=== PATIENT | female | born 1975 | race American Indian/Alaskan Native ===

== ENCOUNTER 2019-04-27 23:54 | Emergency (ER) | payer MEDICAID ==
[~2019-04-27] VITALS: Ht 152.4 cm; Wt 38.0 kg
[~2019-04-27 23:54] MED LIST: ALBU8.5H8 IH; HYDR-4383 PO; IBUP-1985 PO
--- NOTE | 2019-04-28 01:20 | NUR ---
Patient resting comfortably
[2019-04-28 01:52] VITALS: BP 112/65
== END 2019-04-28 01:54 | disposition home or self-care (01) ==
LOC: ER 23:54
DX: S60.562A Insect bite (nonvenomous) of left hand, initial encounter (principal); J45.909 Unspecified asthma, uncomplicated; F10.99 Alcohol use, unspecified with unspecified alcohol-induced disorder; R22.0 Localized swelling, mass and lump, head; Z59.0 Homelessness; Z86.14 Personal history of Methicillin resistant Staphylococcus aureus infection; Z88.0 Allergy status to penicillin; Z79.899 Other long term (current) drug therapy; W57.XXXA Bitten or stung by nonvenomous insect and other nonvenomous arthropods, initial encounter; Y93.89 Activity, other specified; Y92.89 Other specified places as the place of occurrence of the external cause; Y99.8 Other external cause status; Y90.9 Presence of alcohol in blood, level not specified
CPT/HCPCS: 99283

== ENCOUNTER 2019-05-24 17:40 | Emergency (ER) | payer MEDICAID ==
[~2019-05-24] VITALS: Ht 152.4 cm; Wt 45.0 kg
[2019-05-24 17:44] VITALS: BP 100/72
[2019-05-24] MEDS ORDERED: CEPH250T PO (19:00)
== END 2019-05-24 19:13 | disposition home or self-care (01) ==
LOC: ER 17:40
DX: S61.210A Laceration without foreign body of right index finger without damage to nail, initial encounter (principal); L03.113 Cellulitis of right upper limb; J45.909 Unspecified asthma, uncomplicated; F10.99 Alcohol use, unspecified with unspecified alcohol-induced disorder; Z86.14 Personal history of Methicillin resistant Staphylococcus aureus infection; Z88.0 Allergy status to penicillin; Z79.899 Other long term (current) drug therapy; W22.8XXA Striking against or struck by other objects, initial encounter; Y93.89 Activity, other specified; Y92.89 Other specified places as the place of occurrence of the external cause; Y99.8 Other external cause status; Y90.9 Presence of alcohol in blood, level not specified
CPT/HCPCS: 99283

== ENCOUNTER 2019-07-19 13:25 | Emergency (ER) | payer MEDICAID ==
[~2019-07-19] VITALS: Ht 152.4 cm; Wt 37.5 kg
[2019-07-19] MEDS ORDERED: cephalexin 500mg capsule PO ONE (14:05)
[2019-07-19] MEDS ORDERED: acetaminophen 325mg tablet PO ONE (14:05)
[2019-07-19] MEDS ORDERED: IBUP-1986 PO (14:08)
[2019-07-19] MEDS ORDERED: CEPH-572 PO (14:08)
--- NOTE | 2019-07-19 14:45 | NUR ---
spoke to provider re: pt temp still 101.5, would like to do sepsis protocol, she says pt has scalet fever, no labs and not advanced enough for system failure, she will order fluids and torodol
[2019-07-19] MEDS ORDERED: LIDOcaine Viscous 15ml cup MM ONE (15:00)
[2019-07-19] MEDS ORDERED: normal saline 1000ML IV soln IVB ONE (15:00)
[2019-07-19] MEDS ORDERED: ketorolac trometh. 30mg/ml inj. IV ONE (15:00)
[2019-07-19 16:25] VITALS: BP 116/69
== END 2019-07-19 16:28 | disposition home or self-care (01) ==
LOC: ER 13:26
DX: J02.0 Streptococcal pharyngitis (principal); B95.5 Unspecified streptococcus as the cause of diseases classified elsewhere; A38.9 Scarlet fever, uncomplicated; J45.909 Unspecified asthma, uncomplicated; F10.99 Alcohol use, unspecified with unspecified alcohol-induced disorder; Z86.14 Personal history of Methicillin resistant Staphylococcus aureus infection; Z88.0 Allergy status to penicillin; Z79.899 Other long term (current) drug therapy; Y90.9 Presence of alcohol in blood, level not specified
CPT/HCPCS: 96374; 99284; J1885; J7030

== ENCOUNTER 2020-04-22 11:06 | Emergency (ER) | payer MEDICAID ==
[~2020-04-22] VITALS: Ht 152.4 cm; Wt 40.5 kg
[~2020-04-22 11:06] MED LIST changes: +IBUP-1986 PO
[2020-04-22 11:10] VITALS: BP 132/84
[2020-04-22] MEDS ORDERED: CefTRIAXone 250MG IM Kit w/LIDOcaine IM ONE (15:05)
[2020-04-22] MEDS ORDERED: azithromycin 250mg tablet PO ONE (15:05)
[2020-04-22] MEDS ORDERED: ibuprofen tablet 400 MG TABLET PO ONE (15:05)
[2020-04-22] MEDS ORDERED: ACYC-1 PO (15:09)
[2020-04-22 15:21] LABS: URINE HCG NEGATIVE (NEG)
== END 2020-04-22 15:17 | disposition home or self-care (01) ==
LOC: ER 11:07
DX: B00.89 Other herpesviral infection (principal); R10.2 Pelvic and perineal pain; J45.909 Unspecified asthma, uncomplicated; Z86.14 Personal history of Methicillin resistant Staphylococcus aureus infection; Z72.89 Other problems related to lifestyle; Z88.0 Allergy status to penicillin; Z88.5 Allergy status to narcotic agent; Z79.2 Long term (current) use of antibiotics; Z79.899 Other long term (current) drug therapy
CPT/HCPCS: 36415; 81025; 87491; 87591; 96372; 99283; J0696

== ENCOUNTER 2020-05-12 15:31 | Emergency (ER) | payer MEDICAID ==
[~2020-05-12] VITALS: Ht 167.6 cm; Wt 54.5 kg
[2020-05-12] MEDS ORDERED: NO HOME MEDS (15:47)
[2020-05-12] MEDS ORDERED: ketorolac tromethamine 15mg/ml inj. IM ONE (16:35)
--- NOTE | 2020-05-12 16:40 | NUR ---
pt out to ct via [facility] with activity director
--- NOTE | 2020-05-12 16:52 | NUR ---
BACK FROM CT
--- NOTE | 2020-05-12 16:52 | NUR ---
returns from ct
[2020-05-12] MEDS ORDERED: DICL100G30 TOP (17:13)
[2020-05-12 17:41] VITALS: BP 123/96
== END 2020-05-12 17:44 | disposition home or self-care (01) ==
LOC: ER 15:31
DX: M54.5 Low back pain (principal); J45.909 Unspecified asthma, uncomplicated; Z86.14 Personal history of Methicillin resistant Staphylococcus aureus infection; Z72.89 Other problems related to lifestyle; Z88.0 Allergy status to penicillin; Z88.5 Allergy status to narcotic agent; Z79.899 Other long term (current) drug therapy; V87.7XXA Person injured in collision between other specified motor vehicles (traffic), initial encounter; Y93.89 Activity, other specified; Y92.89 Other specified places as the place of occurrence of the external cause; Y99.8 Other external cause status
CPT/HCPCS: 70450; 72131; 96372; 99285; J1885

== ENCOUNTER 2020-05-18 19:08 | Emergency (ER) | payer MEDICAID ==
[~2020-05-18] VITALS: Ht 152.4 cm; Wt 40.9 kg
[~2020-05-18 19:08] MED LIST changes: -ALBU8.5H8 IH; +DICL100G30 TOP; -HYDR-4383 PO; -IBUP-1985 PO; -IBUP-1986 PO; +NO HOME MEDS
--- NOTE | 2020-05-18 20:02 | NUR ---
ENTERED ROOM TO ASSESS PATIENT, SHE WAS SITTING UP IN BED EATING A CHEESBURGER. NO SIGN OF DISTRESS. PATIENT DENIES ANY ALCOHOL OR DRUG USE
[2020-05-18 21:05] VITALS: BP 120/86
== END 2020-05-18 21:08 | disposition home or self-care (01) ==
LOC: ER 19:08
DX: R06.02 Shortness of breath (principal); R47.81 Slurred speech; J45.909 Unspecified asthma, uncomplicated; Z86.14 Personal history of Methicillin resistant Staphylococcus aureus infection; Z72.89 Other problems related to lifestyle; Z88.0 Allergy status to penicillin; Z88.5 Allergy status to narcotic agent; Z79.899 Other long term (current) drug therapy
CPT/HCPCS: 99281

== ENCOUNTER 2020-07-20 12:32 | Emergency (ER) | payer MEDICAID ==
--- NOTE | 2020-07-20 13:06 | NUR ---
Pt left prior to Triage in the ambulance bay/COVID-19 tent. Pt was noted to be ambulatory with steady gait and no distress noted. Pt was not seen leaving but was noted in the waiting area prior to Triage.
== END 2020-07-20 13:10 | disposition left against medical advice (07) ==
LOC: ER 12:33
DX: Z03.818 Encounter for observation for suspected exposure to other biological agents ruled out (principal); Z53.21 Procedure and treatment not carried out due to patient leaving prior to being seen by health care provider

== ENCOUNTER 2021-01-11 16:28 | Emergency (ER) | payer MEDICAID ==
[~2021-01-11] VITALS: Ht 152.4 cm; Wt 42.7 kg
[2021-01-11 17:38] LABS: BASOPHILS # (AUTO) 0.1 X10'3 (0-0.2); BASOPHILS % (AUTO) 1.1 % (0-1); EOSINOPHILS # (AUTO) 0.1 X10'3 (0-0.9); EOSINOPHILS % (AUTO) 1.6 % (0-6); HEMATOCRIT 38.2 % (35.0-45.0); LYMPHOCYTES # (AUTO) 2.4 X10'3 (1.1-4.8); LYMPHOCYTES % (AUTO) 30.2 % (21-51); MEAN CORPUSCULAR HEMOGLOBIN 31.9 PG (27.0-31.0); MEAN CORPUSCULAR VOLUME 93.8 FL (78-98); MEAN PLATELET VOLUME 7.3 FL (7.4-10.4); MONOCYTES # (AUTO) 0.6 X10'3 (0-0.9); MONOCYTES % (AUTO) 7.5 % (2-12); NEUTROPHILS # (AUTO) 4.8 X10'3 (1.8-7.7); NEUTROPHILS % (AUTO) 59.6 % (42-75); PLATELET COUNT 407 X10'3 (140-440); RED BLOOD COUNT 4.07 X10'6 (4.20-5.60); RED CELL DISTRIBUTION WIDTH 13.5 % (11.5-14.5); WHITE BLOOD COUNT 8.1 X10'3 (4.5-11.0)
[2021-01-11 17:53] LABS: ALANINE AMINOTRANSFERASE 31 U/L (12-78); ALBUMIN 3.2 G/DL (3.4-5.0); ALBUMIN/GLOBULIN RATIO 0.8 (1.1-1.5); ALKALINE PHOSPHATASE 79 IU/L (46-116); ANION GAP 8 (8-16); ASPARTATE AMINO TRANSFERASE 26 U/L (10-37); BILIRUBIN,TOTAL 0.2 MG/DL (0.1-1.0); BLOOD UREA NITROGEN 9 MG/DL (7-18); CALCIUM 8.7 MG/DL (8.5-10.1); CHLORIDE 106 MMOL/L (99-107); CREATININE 0.82 MG/DL (0.40-0.90); GLUCOSE 96 MG/DL (70-104); POTASSIUM 4.3 MMOL/L (3.5-5.1); SODIUM 140 MMOL/L (135-145); TOTAL CARBON DIOXIDE 25.9 MMOL/L (24-32); TOTAL PROTEIN 7.4 G/DL (6.4-8.2); eGFR 75 ML/MIN
[2021-01-11 18:03] LABS: CLARITY,URINE CLEAR (Clear); COLOR,URINE YELLOW (Yellow); GLUCOSE, URINE NEGATIVE (Neg); KETONES,URINE NEGATIVE (Neg); LEUKOCYTE ESTERASE ,URINE TRACE (Neg); NITRITES, URINE NEGATIVE (Neg); OCCULT BLOOD,URINE SMALL (Neg); PH,URINE 6.5 (4.8-8.0); PROTEIN,URINE NEGATIVE (Neg); UROBILINOGEN,URINE 0.2 E.U/dL (0.2-1.0)
[2021-01-11 18:09] LABS: UA COLLECTION TYPE CLN CATCH MIDSTREAM
[2021-01-11 18:12] LABS: BACTERIA,URINE FEW /HPF (Neg); SQUAMOUS EPITHELIAL CELL,UR FEW /LPF (FEW); WBC,URINE 0-4 /HPF (0-4)
[2021-01-11 19:03] VITALS: BP 104/72
== END 2021-01-11 19:05 | disposition home or self-care (01) ==
LOC: ER 16:28
DX: R51.9 Headache, unspecified (principal); R42 Dizziness and giddiness; R53.83 Other fatigue; J45.909 Unspecified asthma, uncomplicated; F17.200 Nicotine dependence, unspecified, uncomplicated; Z86.14 Personal history of Methicillin resistant Staphylococcus aureus infection; Z72.89 Other problems related to lifestyle; Z88.0 Allergy status to penicillin; Z88.5 Allergy status to narcotic agent; Z79.899 Other long term (current) drug therapy
CPT/HCPCS: 36415; 70450; 80053; 81001; 85025; 87088; 99284

== ENCOUNTER 2021-07-23 20:02 | Emergency (ER) | payer MEDICAID ==
[~2021-07-23] VITALS: Ht 152.4 cm; Wt 40.9 kg
[2021-07-23 20:13] VITALS: BP 110/75
[2021-07-23] MEDS ORDERED: acetaminophen 325mg tablet PO ONE (20:45)
[2021-07-23] MEDS ORDERED: ALBU8HFA PO (21:05)
[2021-07-23] MEDS ORDERED: azithromycin 250mg tablet PO ONE (21:05)
[2021-07-23] MEDS ORDERED: AZIT-103 PO (21:05)
== END 2021-07-23 21:38 | disposition home or self-care (01) ==
LOC: ER 20:03
DX: J20.9 Acute bronchitis, unspecified (principal); Z20.822 Contact with and (suspected) exposure to COVID-19; R11.10 Vomiting, unspecified; R19.7 Diarrhea, unspecified; R05.9 Cough, unspecified; R43.8 Other disturbances of smell and taste; R50.9 Fever, unspecified; J45.909 Unspecified asthma, uncomplicated; Z86.14 Personal history of Methicillin resistant Staphylococcus aureus infection; Z72.89 Other problems related to lifestyle; Z59.00 Homelessness unspecified; Z88.0 Allergy status to penicillin; Z88.5 Allergy status to narcotic agent; Z79.2 Long term (current) use of antibiotics; Z79.899 Other long term (current) drug therapy
CPT/HCPCS: 87635; 99283; C9803

== ENCOUNTER 2021-12-08 11:38 | Emergency (ER) | payer MEDICAID ==
[~2021-12-08] VITALS: Ht 152.4 cm; Wt 45.5 kg
[2021-12-08] MEDS ORDERED: bacitracin 15gm ointment TP ONE (12:45)
[2021-12-08] MEDS ORDERED: TETanus/Pertussis (Acell)/Diphther VAC/PF (Tdap-Adult) 0.5ml syringe IMVAC ONE (12:45)
[2021-12-08] MEDS ORDERED: acetaminophen 325mg tablet PO ONE (13:20)
[2021-12-08] MEDS ORDERED: ketorolac tromethamine 15mg/ml inj. IM ONE (13:20)
[2021-12-08 13:29] VITALS: BP 115/81
== END 2021-12-08 13:35 | disposition home or self-care (01) ==
LOC: ER 11:38
DX: T24.201A Burn of second degree of unspecified site of right lower limb, except ankle and foot, initial encounter (principal); T31.0 Burns involving less than 10% of body surface; F10.120 Alcohol abuse with intoxication, uncomplicated; J45.909 Unspecified asthma, uncomplicated; Z87.81 Personal history of (healed) traumatic fracture; Z86.14 Personal history of Methicillin resistant Staphylococcus aureus infection; Z72.89 Other problems related to lifestyle; Z56.0 Unemployment, unspecified; Z59.00 Homelessness unspecified; Z88.0 Allergy status to penicillin; Z88.8 Allergy status to other drugs, medicaments and biological substances; Z79.899 Other long term (current) drug therapy; X08.8XXA Exposure to other specified smoke, fire and flames, initial encounter; Y93.89 Activity, other specified; Y92.89 Other specified places as the place of occurrence of the external cause; Y99.8 Other external cause status
CPT/HCPCS: 16000; 90471; 90715; 96372; 99284; J1885

== ENCOUNTER 2021-12-18 15:40 | Emergency (ER) | payer MEDICAID ==
[~2021-12-18] VITALS: Ht 152.4 cm; Wt 41.0 kg
[2021-12-18 15:47] VITALS: BP 110/78
[2021-12-18] MEDS ORDERED: silver sulfadiazine cream 400gm jar TP STA (17:04)
== END 2021-12-18 17:46 | disposition home or self-care (01) ==
LOC: ER 15:40
DX: T24.201S Burn of second degree of unspecified site of right lower limb, except ankle and foot, sequela (principal); J45.909 Unspecified asthma, uncomplicated; Z86.14 Personal history of Methicillin resistant Staphylococcus aureus infection; Z72.89 Other problems related to lifestyle; Z56.0 Unemployment, unspecified; Z59.00 Homelessness unspecified; Z88.0 Allergy status to penicillin; Z88.5 Allergy status to narcotic agent; Z79.899 Other long term (current) drug therapy; X08.8XXA Exposure to other specified smoke, fire and flames, initial encounter; Y93.89 Activity, other specified; Y92.89 Other specified places as the place of occurrence of the external cause; Y99.8 Other external cause status
CPT/HCPCS: 99283

== ENCOUNTER 2022-04-05 21:14 | Emergency (ER) | payer MEDICAID ==
[~2022-04-05] VITALS: Ht 152.4 cm; Wt 40.9 kg
[2022-04-06] MEDS ORDERED: gentamicin 0.1% topical ointment 15gm TP SCH (02:20)
[2022-04-06] MEDS ORDERED: clindamycin 150mg capsule PO ONE (02:20)
[2022-04-06] MEDS ORDERED: CLIN-97 PO (02:23)
[2022-04-06 02:52] VITALS: BP 117/62
== END 2022-04-06 02:53 | disposition home or self-care (01) ==
LOC: ER 21:15
DX: L03.90 Cellulitis, unspecified (principal); J45.909 Unspecified asthma, uncomplicated; F17.200 Nicotine dependence, unspecified, uncomplicated; Z59.00 Homelessness unspecified; Z56.0 Unemployment, unspecified; Z88.0 Allergy status to penicillin; Z88.5 Allergy status to narcotic agent
CPT/HCPCS: 99283

== ENCOUNTER 2022-05-15 18:13 | Emergency (ER) | payer MEDICAID ==
[~2022-05-15 18:13] MED LIST changes: +CLIN-97 PO
== END 2022-05-15 18:27 | disposition left against medical advice (07) ==
LOC: ER 18:14
DX: Z00.8 Encounter for other general examination (principal); Z53.21 Procedure and treatment not carried out due to patient leaving prior to being seen by health care provider

== ENCOUNTER 2022-06-20 15:58 | Emergency (ER) | payer MEDICAID ==
[~2022-06-20] VITALS: Ht 152.4 cm; Wt 39.1 kg
[2022-06-20 16:33] VITALS: BP 114/83
== END 2022-06-20 19:28 | disposition left against medical advice (07) ==
LOC: ER 15:58
DX: R51.9 Headache, unspecified (principal); R42 Dizziness and giddiness; Z53.21 Procedure and treatment not carried out due to patient leaving prior to being seen by health care provider

== ENCOUNTER 2022-08-13 21:01 | Emergency (ER) | payer MEDICAID ==
[~2022-08-13] VITALS: Ht 152.4 cm; Wt 40.5 kg
[2022-08-13 21:25] VITALS: BP 96/68
[2022-08-13] MEDS ORDERED: ibuprofen tablet 400 MG TABLET PO ONE (23:20)
--- NOTE | 2022-08-13 23:50 | NUR ---
REFUSED BOOT AND CRUTCHES
== END 2022-08-13 23:50 | disposition home or self-care (01) ==
LOC: ER 21:02
DX: M25.571 Pain in right ankle and joints of right foot (principal); J45.909 Unspecified asthma, uncomplicated; F12.90 Cannabis use, unspecified, uncomplicated; Z88.0 Allergy status to penicillin; Z88.5 Allergy status to narcotic agent; Z59.00 Homelessness unspecified; Z56.0 Unemployment, unspecified
CPT/HCPCS: 73610; 73630; 99284

== ENCOUNTER 2022-12-10 22:44 | Emergency (ER) | payer MEDICAID ==
[~2022-12-10] VITALS: Ht 152.4 cm; Wt 40.9 kg
[2022-12-10 23:06] VITALS: BP 117/77
[2022-12-10] MEDS ORDERED: SULF1TAB45 PO (23:19)
== END 2022-12-10 23:27 | disposition home or self-care (01) ==
LOC: ER 22:45
DX: L03.317 Cellulitis of buttock (principal); J45.909 Unspecified asthma, uncomplicated; F12.10 Cannabis abuse, uncomplicated; Z59.00 Homelessness unspecified; Z56.0 Unemployment, unspecified; Z86.14 Personal history of Methicillin resistant Staphylococcus aureus infection; Z88.0 Allergy status to penicillin; Z88.5 Allergy status to narcotic agent; Z79.899 Other long term (current) drug therapy
CPT/HCPCS: 99283

== ENCOUNTER 2023-05-24 17:15 | Emergency (ER) | payer MEDICAID ==
[~2023-05-24] VITALS: Ht 152.4 cm; Wt 39.1 kg
[~2023-05-24 17:15] MED LIST changes: -DICL100G30 TOP; +DICL100G59 TOP
[2023-05-24 17:37] VITALS: BP 121/82; PULSE 97; RESP 14; TEMP 99.1; O2SAT 99
[2023-05-24] MEDS ORDERED: NYST1000 PO (23:05)
== END 2023-05-24 23:35 | disposition home or self-care (01) ==
LOC: ER 17:16
DX: B37.0 Candidal stomatitis (principal); J02.9 Acute pharyngitis, unspecified; J45.909 Unspecified asthma, uncomplicated; F12.10 Cannabis abuse, uncomplicated; Z88.0 Allergy status to penicillin; Z88.5 Allergy status to narcotic agent; Z79.899 Other long term (current) drug therapy
CPT/HCPCS: 99283

== ENCOUNTER 2023-06-27 11:26 | Emergency (ER) | payer MEDICAID ==
[~2023-06-27] VITALS: Ht 152.4 cm; Wt 36.2 kg
[2023-06-27 11:30] VITALS: BP 143/89; PULSE 86; RESP 18; O2SAT 100
[2023-06-27] MEDS ORDERED: FLUC100T25 PO (12:57)
[2023-06-27] MEDS ORDERED: fluconazole 100mg tablet PO ONE (13:00)
[2023-06-27 13:40] VITALS: TEMP 97.9
--- NOTE | 2023-06-27 13:43 | NUR ---
pt seen and assessed by jalil jay prior to nursing assessment, pt stable upon dc pt told me to " suck it" and did not sign dicharge papers
== END 2023-06-27 13:47 | disposition home or self-care (01) ==
LOC: ER 11:27
DX: B37.0 Candidal stomatitis (principal); J45.909 Unspecified asthma, uncomplicated; F17.200 Nicotine dependence, unspecified, uncomplicated; F12.90 Cannabis use, unspecified, uncomplicated; Z88.0 Allergy status to penicillin; Z88.5 Allergy status to narcotic agent; Z79.1 Long term (current) use of non-steroidal anti-inflammatories (NSAID); Z79.2 Long term (current) use of antibiotics
CPT/HCPCS: 99283

== ENCOUNTER 2025-02-13 12:34 | Emergency (ER) | payer MEDICAID | END 2025-02-13 12:56 | disposition left against medical advice (07) | LOC: ER 12:34 | DX: M25.532 Pain in left wrist (principal); Z88.0 Allergy status to penicillin; Z88.8 Allergy status to other drugs, medicaments and biological substances; Z53.21 Procedure and treatment not carried out due to patient leaving prior to being seen by health care provider ==